=== PATIENT | female | born 1975 | race African-American/Black ===

== ENCOUNTER 2017-10-26 11:40 | Inpatient (IN) | payer OTHER ==
[~2017-10-26] VITALS: Ht 160 cm; Wt 55.8 kg
[2017-10-26 11:58] VITALS: BP 110/59
[2017-10-26 17:58] LABS: T3 TOTAL 0.94 ng/mL
[2017-10-26 18:14] VITALS: BP 148/92
[2017-10-26 18:41] LABS: ALBUMIN 3.5 g/dL (3.4-5.0); ALKALINE PHOSPHATASE 50 U/L (46-116); ALT/SGPT 10 U/L (14-59); AST/SGOT 14 U/L (15-37); BILIRUBIN TOTAL 0.45 mg/dL (0.20-1.00); CALCIUM 8.6 mg/dL (8.5-10.1); CARBON DIOXIDE 19.2 mmol/L (21-32); CHLORIDE SERUM 106 mmol/L (98-107); CHOLESTEROL 196 mg/dL (<200); CHOLESTEROL/HDL RATIO 4.5; CREATININE SERUM 0.7 mg/dL (0.6-1.0); GFR1 > 60 mL/min; GLUCOSE SERUM 99 mg/dL (74-106); HDL CHOLESTEROL 44 mg/dL (40-60); MAGNESIUM 1.9 mg/dL (1.8-2.4); PHOSPHOROUS 2.4 mg/dL (2.5-4.9); POTASSIUM SERUM 4.1 mmol/L (3.5-5.1); SODIUM SERUM 139 mmol/L (136-145); TOTAL PROTEIN, SERUM 7.3 g/dL (6.4-8.2); TRIGLYCERIDES 92 mg/dL (<150)
[2017-10-26 18:49] LABS: FREE T4 1.18 ng/dL (0.76-1.46); FREE THYROXINE INDEX 2.4 ug/dL (1.4-4.5)
[2017-10-26] MEDS ORDERED: ATORVASTATIN CA10 M1 PO (18:55)
[2017-10-26] MEDS ORDERED: ASPIRIN ADULT L81 M5 PO (18:56)
[2017-10-26] MEDS ORDERED: BACLOFEN10 MG PO (18:56)
[2017-10-26 20:32] VITALS: BP 98/71
[2017-10-27 01:45] LABS: BASOPHIL % 0.6 % (0-2); PLATELET COUNT 285 x10^3mcL (130-400); RED CELL DISTRIBUTION WIDTH 13.9 % (11.5-14.5)
[2017-10-27 04:59] VITALS: BP 126/77
[2017-10-27 06:02] LABS: BASOPHIL % 0.8 % (0-2); PLATELET COUNT 249 x10^3mcL (130-400)
[2017-10-27 06:28] LABS: CALCIUM 8.2 mg/dL (8.5-10.1); CARBON DIOXIDE 25.3 mmol/L (21-32); CHLORIDE SERUM 108 mmol/L (98-107); CREATININE SERUM 0.9 mg/dL (0.6-1.0); GFR1 > 60 mL/min; GLUCOSE SERUM 95 mg/dL (74-106); POTASSIUM SERUM 4.2 mmol/L (3.5-5.1); SODIUM SERUM 141 mmol/L (136-145)
[2017-10-27 07:02] LABS: RED CELL DISTRIBUTION WIDTH 14.7 % (11.5-14.5)
[2017-10-27 11:01] VITALS: BP 102/64
[2017-10-27] MEDS ORDERED: APAP/HYDROCODON1 T13 PO (13:08)
[2017-10-27 13:21] VITALS: BP 102/64
== END 2017-10-27 15:43 | disposition home or self-care (01) | DRG 513 ==
LOC: DS 11:40 → OR 13:30 → DS 13:30 → MU 17:58 → DS 17:59 → MU 18:20 → DS 18:26 → MU 18:26
PROVIDERS: Family Medicine; Obstetrics & Gynecology
PROC: 0U5B8ZZ Destruction of Endometrium, Via Natural or Artificial Opening Endoscopic (ICD-10-PCS; 2017-10-26)
PROC: 0UDB8ZZ Extraction of Endometrium, Via Natural or Artificial Opening Endoscopic (ICD-10-PCS; principal; 2017-10-26 14:30)
DX: N92.1 Excessive and frequent menstruation with irregular cycle (principal); F20.9 Schizophrenia, unspecified; N80.9 Endometriosis, unspecified; F17.210 Nicotine dependence, cigarettes, uncomplicated; F12.90 Cannabis use, unspecified, uncomplicated; Z53.29 Procedure and treatment not carried out because of patient's decision for other reasons; Z79.82 Long term (current) use of aspirin; Z79.899 Other long term (current) drug therapy
CPT/HCPCS: 83880; 84439; 94150; J0690; J2250; J2270; J3010; Q0092

== ENCOUNTER 2019-01-24 06:05 | Observation (INO) | payer OTHER ==
[~2019-01-24] VITALS: Ht 160 cm; Wt 55.9 kg
[~2019-01-24 06:05] MED LIST: APAP/HYDROCODON1 T13 PO; ASPIRIN ADULT L81 M5 PO; ATORVASTATIN CA10 M1 PO; BACLOFEN10 MG PO
[2019-01-24 06:23] VITALS: BP 123/78
--- NOTE | 2019-01-24 09:05 | NUR ---
PT ARRIVED TO UNIT ACCOMPANIED BY NURSE. PT IS AWAKE, ALERT AND ORIENTED X4. PT LOOKS TO BE IN NO ACUTE DISTRESS AND STATES FEELING DULL AND ACHING PAIN TO THE LOWER ABD 6/10. IV SITE TO LEFT HAND IS PATENT WITH NO SIGNS OF ERYTHEMA OR SWELLING AND IS H/L. LUNG SOUNDS CLEAR BILATERALLY ON ROOM AIR. PT DENIES ANY DIFFICULTY BREATHING OR CHEST PAIN. PULSES PALPABLE AND NO EDEMA PRESENT. PT DENIES ANY N/V. 2 SPOTS OF MINIMAL BLOODY DISCHARGE FROM VAGINAL NOTED ON PERIPAD. PT INFORMED TO INFORM NURSE IF FEELING INCREASED DISCHARGE OR A GUSH OF DISCHARGE FROM AREA. PT VERBALIZED UNDERSTANDING OF INFORMATION. ORIENTED PT TO UNIT AND ROOM. BED IN LOWEST POSITION, CALL LIGHT WITHIN REACH. WILL CONITNUE TO MONITOR.
--- NOTE | 2019-01-24 12:50 | NUR ---
PT IS SITTING UP IN BED WORKING ON PAPERWORK. PT LOOKS TO BE IN NO ACUTE DISTRESS AT THIS TIME AND STATES PAIN IS TOLERABLE AT THIS TIME. CHECKED PERIPAD FOR BLOOD, SCANT AMOUNT OF BRIGHT RED BLOODY DISCHARGE PRESENT. PT STATED SHE WILL INFORM NURSE IF FEELING AN INCREASE IN VAGINAL DISCHARGE. IV SITE PATENT WITH NO SIGNS OF ERYTHEMA OR SWELLING. RESPIRATIONS EVEN AND UNLABORED. BED IN LOWEST POSITION, CALL LIGHT WITHIN REACH, FAMILY MEMBER AT BEDSIDE. WILL CONTINUE TO MONITOR.
[2019-01-24 13:02] VITALS: BP 123/84
[2019-01-24 16:32] VITALS: BP 118/80
--- NOTE | 2019-01-24 18:58 | NUR ---
PT IS LAYING DOWN IN BED WITH HOB UP RESTING. RESPRIATIONS EVEN AND UNLABORED ON ROOM AIR. PT LOOKS TO BE IN NO ACUTE DISTRESS AT THIS TIME AND STATES PAIN MEDICAITON DID NOT ASSIST WITH HER PAIN AND IS COMPLAINING OF PAIN 7/10 TO MID LOWER ABD. SCANT AMOUNT OF BROWN DISCHARGE NOTED ON PERIPAD. PT DENIES ANY INCREASE IN DISCHARGE FROM VAGINAL AREA. IV SITE PATENT WITH NO SIGNS OF ERYTHEMA OR SWELLING. BED IN LOWEST POSITION, CALL LIGHT WITHIN REACH. WILL ENDORSE TO ONCOMING SHIFT.
[2019-01-24 20:00] VITALS: BP 127/76
--- NOTE | 2019-01-24 20:48 | NUR ---
PATIENT RECEIVED RESTING IN BED WITH COMPLAIN OF LOWER QUADRANT ABDOMINAL PAIN, 12/11. MEDICATED WITH MOTRIN 800 MG PO ORDERED. RESPIRATION EVEN AND UNLABORED, ON ROOM AIR. SALINE LOCK TO LEFT HAND PATENT AND INTACT. LBM 01/24/2019. VOIDING FREELY WITHOUT DIFFICULTY. GENERALIZED WEAKNESS. SKIN DRY AND INTACT. POSITIVE SCANT VAGINAL BLEEDING. WILL CONTINUE TO MONITOR.
--- NOTE | 2019-01-25 | NUR ---
PATIENT ASLEEP IN BED. NO SIGN OF DISCOMFORT/PAIN. SALINE LOCK TO LEFT HAND PATENT AND INTACT. NO EXCESSIVE BLEEDING NOTED. WILL CONTINUE TO MONITOR.
[2019-01-25 05:56] VITALS: BP 103/72
--- NOTE | 2019-01-25 06:41 | NUR ---
PATIENT RESTING IN BED. RESPIRATION EVEN AND UNLABORED, ON ROOM AIR. SALINE LOCK TO LEFT HAND PATENT AND INTACT. SCANT VAGINAL BLEEDING NOTED. ASSISTED WITH NEEDS. SAFETY OBSERVED. PLACED BED IN THE LOWEST POSITION. PLACED CALL LIGHT WITHIN REACH AT ALL TIMES.
--- NOTE | 2019-01-25 07:25 | NUR ---
RECEIVED PT RESTING IN BED. NO ACUTE DISTRESS. AAOX4. RESP EVEN AND UNLABORED ON RA. REPORTS ON AND OFF MILD CRAMPING PAIN, TOLERABLE. PT STATED HER PAD THIS AM WAS "BASICALLY CLEAR." IV TO L HAND, NO REDNESS OR SWELLING NOTED. BED IN LOW POSITION, CALL LIGHT WITHIN REACH. WILL CONTINUE TO MONITOR.
[2019-01-25 08:33] VITALS: BP 111/81
--- NOTE | 2019-01-25 10:01 | NUR ---
PT WANTED TO LEAVE AMA WITHOUT SPEAKING WITH THE DOCTOR. EXPLAINED RISKS OF LEAVING AMA WITH PT, ESPECIALLY RISKS FOR BLEEDING AND PAIN. PT INSISTED ON LEAVING AMA. AMA FORM SIGNED AND PLACED IN CHART. INFORMED PT TO GO TO THE NEAREST ED IF EXCESSIVE BLEEDING OCCURS. INSTRUCTED PT TO FOLLOW UP WITH PCP AND OB-BOILER ROOM HELPER. IV TO L HAND DC'D WITH CATHETER INTACT. BELONGINGS WITH PT. TENZIN ENRIQUEZ ACCOMPANIED PT TO LOBBY.
--- NOTE | 2019-01-25 10:04 | NUR ---
ATTEMPTED TO NOTIFY DR. SANTOS OF PT'S AMA STATUS, VOICE MESSAGE LEFT.
== END 2019-01-25 10:01 | disposition left against medical advice (07) | DRG 517 ==
LOC: DS 06:05 → OR 07:30 → DS 07:30 → MU 10:45
PROVIDERS: ADMIT Obstetrics & Gynecology
PROC: 0UDB7ZZ Extraction of Endometrium, Via Natural or Artificial Opening (ICD-10-PCS; principal; 2019-01-24 07:30)
DX: N92.0 Excessive and frequent menstruation with regular cycle (principal); F20.9 Schizophrenia, unspecified; E78.5 Hyperlipidemia, unspecified; F17.210 Nicotine dependence, cigarettes, uncomplicated; Z86.711 Personal history of pulmonary embolism; Z53.09 Procedure and treatment not carried out because of other contraindication
CPT/HCPCS: G0378; J0690; J1170; J2250; J2405; J2704; J3010; J7120

== ENCOUNTER → 2019-07-13 18:50 | Inpatient (IN) | payer OTHER ==
[2019-07-11 06:48] VITALS: BP 135/88
[2019-07-11 07:01] VITALS: BP 135/88
[2019-07-11 10:56] VITALS: BP 144/98
[2019-07-11 20:49] VITALS: BP 156/100
[2019-07-12 04:28] VITALS: BP 164/102
[2019-07-12 07:06] LABS: BASOPHIL % 0.3 % (0-2); PLATELET COUNT 196 x10^3mcL (130-400); RED CELL DISTRIBUTION WIDTH 14.1 % (11.5-14.5)
[2019-07-12 12:35] VITALS: BP 131/98
[2019-07-12 17:10] VITALS: BP 134/75
[2019-07-12 20:41] VITALS: BP 142/89
[~2019-07-13] VITALS: Ht 160 cm; Wt 51.3 kg
[2019-07-13 05:58] VITALS: BP 149/92
[2019-07-13 07:00] LABS: CALCIUM 8.7 mg/dL (8.5-10.1); CARBON DIOXIDE 25.5 mmol/L (21-32); CHLORIDE SERUM 106 mmol/L (98-107); CREATININE SERUM 0.7 mg/dL (0.6-1.0); GFR1 > 60 mL/min; GLUCOSE SERUM 102 mg/dL (74-106); POTASSIUM SERUM 3.6 mmol/L (3.5-5.1); SODIUM SERUM 139 mmol/L (136-145)
[2019-07-13 08:34] VITALS: BP 143/97
[2019-07-13 13:52] VITALS: BP 144/107
[2019-07-13 18:16] VITALS: BP 129/92; BP 144/107
[2019-07-13 18:18] VITALS: BP 129/92
== END | disposition home or self-care (01) | DRG 513 ==
LOC: MU 04-03 09:30
PROVIDERS: ADMIT Obstetrics & Gynecology
PROC: 0UB00ZZ Excision of Right Ovary, Open Approach (ICD-10-PCS; 2019-07-11)
PROC: 0UB50ZZ Excision of Right Fallopian Tube, Open Approach (ICD-10-PCS; 2019-07-11)
PROC: 0UT90ZL Resection of Uterus, Supracervical, Open Approach (ICD-10-PCS; principal; 2019-07-11 07:30)
DX: N92.1 Excessive and frequent menstruation with irregular cycle (principal); N73.6 Female pelvic peritoneal adhesions (postinfective)
CPT/HCPCS: G0378; J0330; J0360; J0690; J1170; J2250; J2270; J2405; J2704; J2710; J2765; J3010; J3490; J7120; Q9958; Q9967